=== PATIENT | female | born 2000 | race Caucasian/White ===

== ENCOUNTER 2022-12-09 12:02 | Inpatient (IN) | payer MEDICAID ==
[~2022-12-09] VITALS: Ht 165.1 cm; Wt 104.1 kg
--- NOTE | 2022-12-09 19:25 | NUR ---
Ambulatory to unit for cytotec induction, accompanied by spouse and pt's mother. Oriented to room, monitor, plan of care.
[2022-12-09 19:45] VITALS: BP 140/78; PULSE 102; TEMP 98.1
--- NOTE | 2022-12-09 20:00 | NUR ---
Reviewed visitation policy and plan of care for tonight. Explained that pt should try to rest as much as possible tonight and family should do the same. Pt's mother in room, pt's father in waiting room. Espalined that family could go home/to pt's apartment and sleep and they could be called if things progress but most cytotec pts don't deliver until the next day or evening. Pt and spouse verbalize understanding. Pt, spouse and mother conversing in Dutch.
[2022-12-09 20:08] LABS: BASO % 0.2 % (0.0-2.0); EOS % 0.4 % (0.0-4.0); GRAN # 7.1 K/mm3 (1.4-6.5); GRAN % 68.7 % (42.2-75.2); HEMATOCRIT 37.7 % (37.0-47.0); HEMOGLOBIN 12.3 g/dl (12.5-16.0); LYMPH # 2.1 K/mm3 (1.2-3.4); LYMPH % 20.7 % (20.0-51.0); MEAN CELL VOLUME 85 fl (80.0-100.0); MEAN CORPUSCULAR HEMOGLOBIN 28 pg (27-31); MEAN CORPUSCULAR HGB CONC 33 g/dl (33.0-37.0); MEAN PLATELET VOLUME 11.2 fl (7.4-10.4); MONO % 9.5 % (1.7-9.3); PLATELET COUNT 287 K/mm3 (130-400); RED BLOOD COUNT 4.44 M/mm3 (4.10-5.30); REDCELL DISTRIBUTION WIDTH-CV 15.7 % (11.5-14.5)
[2022-12-09 20:20] VITALS: BP 134/86; PULSE 78
[2022-12-09 20:40] VITALS: BP 121/86; PULSE 93
--- NOTE | 2022-12-09 22:15 | NUR ---
pt's father and sister now in room with pt and spouse. Pt's father asks for "another sleep chair for my " Explained that only 1 sleep chair is allowed per room. Again reviewed that this induction process is very slow and that pt should sleep tonight. Reminded pt that family can go back to her home and can be called if things start progressing.
[2022-12-09 22:30] VITALS: BP 136/86; PULSE 84
[2022-12-09 23:15] VITALS: BP 142/83; PULSE 78
[2022-12-10] VITALS (71 sets, daily range): BP systolic 114–188; BP diastolic 57–99; PULSE 63–103; TEMP 98–99
--- NOTE | 2022-12-10 17:23 | NUR ---
JEN MCDANIEL CALLED AT 1655 FOR EPIDURAL. JEN HERE TO PUT IN EPIDURAL FOR PT AT 1710. PT SITTING AT BEDSIDE. NS BOLUS INFUSING. O2 MONITOR IN PLACE. TEST DOSE AT 1723. PATIENT TOLERATED WELL. VSS. PATIENT LAID DOWN TO WEDGE LEFT. PATIENT FEELING PAIN RELIEF.
--- NOTE | 2022-12-10 17:59 | NUR ---
PATIENT TAKING OWN BLOOD SUGARS. ORDERS FOR SUGARS TO BE TAKEN Q 4 HRS. BLOOD SUGARS ARE FOLLOWS: 12/10/22 AT 0800: 100 12/10/22 AT 1000:88 12/10/22 AT 1230: 86 12/10/22 AT 1700: 103
--- NOTE | 2022-12-10 18:20 | NUR ---
Reprt received from [place]. Pt is at 30mu of Pitocin, SVE /-1 at 1807, has an epidural at 1723, waters in, and is having blood glucose check every 4 hours. Last blood glucose check was of 103 at 1700. Care relinquished from [place].
--- NOTE | 2022-12-10 18:30 | NUR ---
Ctx tracing intermittently due to pt position and maternal habitus. This nurse at pt bedside palpating pt abdomen, attemtping to readjust TOCO monitor.
--- NOTE | 2022-12-10 18:45 | NUR ---
1832: Dr. Kilgore called this nurse to ask for pt progress update. See physician notification for further details.
--- NOTE | 2022-12-10 19:00 | NUR ---
1844: Dr. Kilgore at pt bedside. Strip reviewed, POC discussed. 1849: TAMIA, Dr. Kilgore, unchanged. 1857: Pitocin at 16mu, per Dr. Kothari orders.
--- NOTE | 2022-12-10 19:15 | NUR ---
0: Pt on BR positioned in sidelying-release LR. 1909: Pt on BR positioned in sidelying-release RR. 1912: Pitocin at 18mu, per protocol.
--- NOTE | 2022-12-10 19:30 | NUR ---
FHR and ctx tracing intermittently due to pt position. This nurse at pt bedside palpating pt abdomen, attempting to readjust external monitors x2. 1925: Pt on BR on hands and knees, positioned in Shake the [place] tree maneuver. 1927: Pitocin at 20mu, per protocol.
--- NOTE | 2022-12-10 19:45 | NUR ---
FHR and ctx tracing intermittently due to pt position and maternal habitus. This nurse at pt bedside palpating pt abdomen, attemtping to readjust external monitors x2. Pt on BR on hands and knees, positioned in Shake the [place]rees maneuver. 1943: Pitocin at 22mu, per protocol.
--- NOTE | 2022-12-10 20:00 | NUR ---
1950: Pt positioned in [facility] with PB in WL. 1957: Pitocin at 24mu, per protocol.
--- NOTE | 2022-12-10 20:15 | NUR ---
2013: Pitocin at 26mu, per protocol. FHR tracing intermittently due to pt position. This nurse at pt bedside palpating pt abdomen, attempting to readjust external monitors x2. Pt still in [place] position, PB in WL.
--- NOTE | 2022-12-10 20:45 | NUR ---
2030: Pt on BR in Flying Cowgirl position, PB in WR. 2042: Pitocin at 30mu, per protocol.
--- NOTE | 2022-12-10 21:00 | NUR ---
Pt positioned with KICO, PB. Pt glucose test result at 90.
--- NOTE | 2022-12-10 21:15 | NUR ---
2106: This nurse observed pt with labor shakes. Pt commented "is it normal I am shaking?". This nurse explained to pt that labor shakes is normal in labor progression. 2109: Dr. Kilgore at pt bedside. Strip reviewed and POC discussed. 2114: Dr. Magui CANTRELL, /1.
--- NOTE | 2022-12-10 21:30 | NUR ---
FHR and ctx tracing intermittently due to pt position in [facility]. This nurse at pt bedside palpating pt abdomen, attemtping to readjust external monitors x2.
--- NOTE | 2022-12-10 21:45 | NUR ---
2137: This nurse called Dr. Kilgore for POC. See physician notification for further information.
--- NOTE | 2022-12-10 22:00 | NUR ---
FHR tracing intermittently due to pt position in [facility]. This nurse at pt bedside palpating pt abdomen, attempting to readjust external monitors x2.
--- NOTE | 2022-12-10 22:15 | NUR ---
2200: Pt in exaggerated runners lunge with PB, WR. FHR and ctx tracing intermittently due to pt positioning and maternal habitus. This nurse at pt bedside palpating pt abdomen, attemtping to readjust external monitors x2.
--- NOTE | 2022-12-10 22:30 | NUR ---
FHR tracing intermittently due to pt positioning. This nurse at pt bedside palpating pt abdomen, attempting to readjust external monitors x2.
--- NOTE | 2022-12-10 22:45 | NUR ---
SVE, with pt consent and explanation, lip and baby at 0 station. Pt positioned in RLS.
--- NOTE | 2022-12-10 23:15 | NUR ---
Crystal KOROMA by this nurse.
--- NOTE | 2022-12-10 23:30 | NUR ---
2317: Pt starts pushing with ctx. FHR audible throughout the room. This nurse at pt bedside throughout the entire second stage, attempting to readjust external monitors x2.
[2022-12-11] VITALS (29 sets, daily range): BP systolic 111–163; BP diastolic 58–108; PULSE 62–97; TEMP 98–99.1
--- NOTE | 2022-12-11 | NUR ---
Pt pushing with ctx. FHR remains auidible throughout the room. This nurse at pt bedside throughout entire second stage. This nurse palpating pt abdomen, attempting to readjust external monitors x2.
--- NOTE | 2022-12-11 00:15 | NUR ---
Pt pushes with each ctx. FHR remains audible throughout the room. This nurse at pt bedside throughout entire second stage. This nurse palpates pt abdomen, attempting to readjust external monitors x2.
--- NOTE | 2022-12-11 00:30 | NUR ---
Pt pushing with each ctx. This nurse at pt bedside throughout the entire second stage. FHR remains audible throughout the room. This nurse palpating pt abdomen, attempting to readjust external monitors x2. 0026: This nurse called Dr. Kilgore to notify of pt and progress.
--- NOTE | 2022-12-11 00:45 | NUR ---
Pt pushing with each ctx. FHR remains audible throughout the room. This nurse at pt bedside throughout entire second stage. This nurse palpating pt abdomen, attempting to readjust external monitors x2.
--- NOTE | 2022-12-11 01:00 | NUR ---
Pt pushing with each ctx. FHR remains audible throughout room. This nurse at pt bedside throughout entire second stage. This nurse palpating pt abdomen, attempting to readjust external monitors x2.
--- NOTE | 2022-12-11 01:15 | NUR ---
Pt pushing with each ctx. FHR remains audible throughout room. This nurse at pt bedside throughout entire second stage. This nurse palpating pt abdomen, attemtpting to readjust external monitors x2.
--- NOTE | 2022-12-11 01:30 | NUR ---
FHR tracing intermittently as pt is pushing with each ctx. FHR remains audible throughout entire room. This nurse at pt bedside throughout entire second stage. This nurse palpating pt abdomen, attempting to readjust external monitors x2. 0125: Pt given a push break.
--- NOTE | 2022-12-11 01:45 | NUR ---
0140: Dr. Kilgore on unit, strip reviewed. Dr. Kligore at pt bedside, POC reviewed. SVE and push assessed. Dr. Kilgore discusses potential of section. Pt verbalizes understanding and agreement of POC.
--- NOTE | 2022-12-11 02:00 | NUR ---
0156: This nurse notified anesthesia of section.
--- NOTE | 2022-12-11 02:15 | NUR ---
Pt prepared for section. FOB given PPE, pt given PPE. Pt abdomen scrubbed and prepped with soap. Pt mons pubis area clipped for section.
--- NOTE | 2022-12-11 02:30 | NUR ---
0215: Rojas inserted by this nurse. Pt tolerated procedure well 0220: Prophylactic abx given. 0230: Pt off external monitors, prepped to transport to the OR. 2240: Pt at OR.
--- NOTE | 2022-12-11 02:53 | NUR ---
delivery of viable baby girl at 0253. Cord clamped and cut by Dr. Kilgore. Baby care assumed by Wendy Neville RN. Manual delivery of intact placenta at 0254.
--- NOTE | 2022-12-11 03:00 | NUR ---
predictive maintenance technician, Maria C Marie, called a timeout to verify and locate 1 needle that "popped open on table". This nurse, Dr. Kilgore, Dr. Leon, and charge nurse Janeen Jauregui scours OR floor to locate lost needle. Janeen Jauregui, calls xray at [phone]. [phone]: health technician arrives. This nurse and Janeen Jauregui, RN help lift sterile drape for fibre technologist to place xray backboard underneath pt back. As xray is about to set up for xray taking, needle is found under baby warmer. Count done, count correct.
--- NOTE | 2022-12-11 03:36 | NUR ---
Pt transported to Room 213 via hospital bed. Pt oriented to room, educated on whiteboard, educated on education packet, and educated on abnormal bleeding. Questions, concerns, and needs encouraged. Pt verbalizes understanding and agreement of education and POC with "no" questions, concerns, or needs.
--- NOTE | 2022-12-11 08:57 | NUR ---
FHR tracing intermittently due to pt pushing. Pt pushing with ctx. FHR remains audible throughout the room. This nurse at pt bedside throughout entire second stage.
--- NOTE | 2022-12-11 09:44 | NUR ---
0930 [place] CATHETER REMOVED, 10ML REMOVED FROM BALLOON, INTACT. PT AMBULATED TO BATHROOM WITH ASSISTANCE FROM THIS RN. STEADY GAIT WITH NO COMPLAINTS OF DIZZINESS OR WEAKNESS. PER PT INCISION IS SORE. THIS RN OFFERED PRN OXY, PT REFUSED AT THIS TIME. PT VOIDED 50ML, BLEEDING WNL, VERNELL CARE DONE. EPIDURAL CATHETER REMOVED, SITE CLEAN DRY AND INTACT, BANDAID APPLIED. BINDER REAPPLIED AND PT BACK TO BED. QUESTIONS AND CONCERNS INVITED AT THIS TIME, NONE EXPRESSED.
--- NOTE | 2022-12-12 09:44 | NUR ---
Pt reports fasting BG this am as 92
[2022-12-12 09:45] VITALS: BP 113/70; PULSE 90; TEMP 97.8
[2022-12-12] MEDS ORDERED: ROXICODONE 55 MG/TAB PO (10:19)
[2022-12-12] MEDS ORDERED: IBU800 M1 PO (10:19)
[2022-12-12 16:11] VITALS: BP 127/57; PULSE 79
--- NOTE | 2022-12-12 16:13 | NUR ---
2 HR PP LUNCH BG 110
[2022-12-12 19:00] VITALS: BP 139/78; PULSE 76; TEMP 98.4
--- NOTE | 2022-12-12 19:28 | NUR ---
ASKED PATIENT IF THEY WERE WANTING TO GO HOME TONIGHT. PATIENT SAID THAT THEY HAD THOUGHT ABOUT IT EARLIER AND DECIDED THAT THEY WOULD RATHER WAIT AND GO HOME IN THE MORNING.
--- NOTE | 2022-12-12 19:57 | NUR ---
PT. REPORTS 2 HR PP DINNER BG WAS 111
--- NOTE | 2022-12-13 08:15 | NUR ---
Fasting BG this morning 88
[2022-12-13 09:05] VITALS: BP 129/70; PULSE 77; TEMP 97.8
== END 2022-12-13 12:25 | disposition home or self-care (01) | DRG 788 ==
LOC: OB 12:02 → LDR 19:18 → OB 12-11 04:25 → LDR 12-11 04:25 → OB 12-13 12:25
PROVIDERS: ADMIT Student in an Organized Health Care Education/Training Program
PROC: 3E0P7VZ Introduction of Hormone into Female Reproductive, Via Natural or Artificial Opening (ICD-10-PCS; 2022-12-09)
PROC: 10D00Z1 Extraction of Products of Conception, Low, Open Approach (ICD-10-PCS; principal; 2022-12-10)
PROC: 3E033VJ Introduction of Other Hormone into Peripheral Vein, Percutaneous Approach (ICD-10-PCS; 2022-12-10)
DX: O24.424 Gestational diabetes mellitus in childbirth, insulin controlled (principal); O75.89 Other specified complications of labor and delivery; O62.0 Primary inadequate contractions; O99.013 Anemia complicating pregnancy, third trimester; D64.9 Anemia, unspecified; O99.213 Obesity complicating pregnancy, third trimester; Z3A.39 39 weeks gestation of pregnancy; Z37.0 Single live birth; Z79.4 Long term (current) use of insulin
CPT/HCPCS: J0456; J0690; J1100; J1885; J2405; J2590; J3010; J7030; J7050